=== PATIENT | female | born 1955 ===

== ENCOUNTER 2017-09-14 14:22 | Outpatient (CLI) | payer OTHER ==
--- NOTE | 2017-09-14 17:05 | XRay Report ---
FINAL REPORT EXAM: XR KNEE BILAT 4+V HISTORY: BILATERAL KNEE PAIN TECHNIQUE: Four views of the bilateral knees were performed standing Comparison: None FINDINGS: There is mild global osteopenia. There is right greater than left medial joint space narrowing and tibial spine blunting. There is right lateral femoral condylar squaring and bilateral tibial plateau osteophytic formation. There is bilateral advanced patellofemoral osteophytic formation without significant right-sided effusion. There is a small left suprapatellar bursal effusion. There is marked patellofemoral facet incongruent E. On the right intercondylar notch view, small loose bodies may be present. IMPRESSION: Right greater than left advanced osteoarthritis with possible loose bodies in the right intercondylar notch.
== END 2017-09-14 14:23 | disposition home or self-care (01) ==
LOC: SPVIMAG 14:22
PROVIDERS: ATTEND Orthopaedic Surgery
DX: M17.0 Bilateral primary osteoarthritis of knee (principal)